=== PATIENT | female | born 1940 | race Caucasian/White ===

== ENCOUNTER → 2023-11-13 07:51 | Outpatient (REF) | payer OTHER, SELFPAY | LOC: HWWDC 07:51 | PROVIDERS: ATTENDING PHYSICIAN Internal Medicine | DX: Z12.31 Encounter for screening mammogram for malignant neoplasm of breast (principal) | CPT/HCPCS: 77063; 77067 ==

== ENCOUNTER 2024-01-28 11:03 | Emergency (ER) | payer OTHER, SELFPAY ==
[2024-01-28 11:07] VITALS: BP 129/92
[2024-01-28 11:45] VITALS: BMI 38.0
--- NOTE | 2024-01-28 11:49 | EDRN ---
Yanet Barlow APPLIANCE SALES ASSOCIATE currently at the pts bedside
[2024-01-28 12:00] VITALS: BP 131/86
--- NOTE | 2024-01-28 12:01 | EDRN ---
labs drawn and sent, this RN provided a gown for the pt and the pt was agreeable to change into a gown for ultrasound, the pt is resting in stretcher in the lowest position, side rails up x1, HOB elevated, there is no call ramsey in [address], the
pt is being taken to ultrasound now
[2024-01-28 12:07] LABS: % Basophils 0.4 % (0-2); % Eosinophils 0.5 % (0-6); % Immature Granulocytes 0.2 % (0-0.5); % Monocytes 8.8 % (1.7-9.3); % Neutrophils 62.1 % (42.2-75.2); Absolute Eosinophils 0.1 10^3/uL (0-0.7); Absolute Lymphocytes 2.6 10^3/uL (1.2-3.4); Absolute Monocytes 0.8 10^3/uL (0.1-0.6); Absolute Neutrophils 5.7 10^3/uL (1.4-6.5); Hematocrit 42.9 % (37.0-47.0); Hemoglobin 14.3 g/dL (12.0-16.0); Mean Corp Hgb Conc. 33.3 g/dL (33.0-37.0); Mean Corpuscular Volume 89.9 fL (81.0-99.0); Mean Platelet Volume 9.5 fL (7.4-10.4); Nucleated Red Blood Cells % 0 %; Platelet Count 252 10^3/uL (130-400); Red Blood Cell Count 4.77 10^6/uL (4.20-5.40); Red Cell Dist. Width 13.2 % (11.5-14.5); White Blood Cell Count 9.2 10^3/uL (4.8-10.8)
--- NOTE | 2024-01-28 12:38 | ED.GENMED ---
History of Present Illness
General
Chief Complaint: DVT/Possible Blood Clot
Source: patient
Exam Limitations: none
Time Seen by Provider: 01/28/24 11:40
Nursing documentation reviewed up to this point in time: agreed with
History of Present Illness
History of Present Illness:
Patient is an 83-year-old female who complains of swelling in left lower extremity for about 4 days. She denies any injury. She denies any redness fever chills. She denies any shortness of breath. No prior history of DVT.
No recent surgeries /recent travel.
Past History
Past History
ED Past Medical History: Cancer (Skin cancer) and HTN
ED Past Surgical History: Other (Skin cancer removal)
Social History
Tobacco: Non-smoker
Alcohol: None
Personal:
Living: with family
Employment: Retired
Family History
Family History: Other (Noncontributory)
Review of Systems
Review of Systems
Allergies reviewed?: Yes
All Other Systems: ROS reviewed and negative except as documented in HPI and ROS
Respiratory: Reports no symptoms; Denies trouble breathing
Cardiac: Reports no symptoms
Musculoskeletal: Reports other (left lower leg swelling )
Skin: Reports no symptoms
Neurological: Reports no symptoms
Psychiatric: Reports no symptoms
Phy Exam
General Physical Exam
General Presentation: no apparent distress
General age: appears stated age
General Skin: warm and dry
General Habitus: normal
General Mental: alert
General Hydration: appears well hydrated
Neurological Exam
Neurological Exam: alert and oriented x3
Musculoskeletal Exam
Musculoskeletal Exam: other (Left lower extremity swelling on exam no erythema strong distal pulses normal distal sensation)
Skin Exam
Skin Exam: normal color and warm/dry
Psychiatric Exam
Psychiatric Exam: normal mood/affect
Course
Orders/Labs/Results
Orders:
Orders
01/28/24 11:48
Venous Doppler Lwr Ext Bilat [US Periph Venous LOWER Ext Mirza] Urgent
Comment:
Reason For Exam: swelling b/l left greater then right
01/28/24 11:51
Complete Blood Count/With Diff Urgent
Comprehensive Metabolic Panel Urgent
01/28/24 13:47
Case Management Consult ONCE
Case Management Consult: Discharge Planning
Comment: eliquis discharge planning
Abnormal Lab Results
01/28/24
11:51
Absolute Monos (auto) 0.8 H 10^3/uL
(0.1-0.6)
BUN 21 H mg/dl
(7-17)
Glucose 108 H mg/dl
(70-99)
01/28/24 11:51
01/28/24 11:51
Vital Signs
Initial and Last Documented VS:
Initial Vital Signs
Temp Pulse Resp BP Pulse Ox
98.2 F 71 18 129/92 96
01/28/24 11:07 01/28/24 11:07 01/28/24 11:07 01/28/24 11:07 01/28/24 11:07
Last Documented Vital Signs
Temp Pulse Resp BP Pulse Ox
98.5 F 74 20 131/86 99
01/28/24 12:00 01/28/24 12:00 01/28/24 12:00 01/28/24 12:00 01/28/24 12:00
Special Weapons And Tactics Officer consulted with Physician
Special Weapons And Tactics Officer consulted with physician?: Yes
Name of Physician Consulted: Caty
MDM/Problems Addressed
MDM/Problems Addressed:
Patient is an 83-year-old female who presented to the ER complaining of 4 days of left lower extremity swelling. No prior history of DVT PE no DVT PE risk factors. She denies any shortness of breath. On exam she has obvious swelling to left lower
extremity strong pulses. She denies injury. Ultrasound does show occlusive thrombus within the left femoral vein popliteal and posterior tibial vein. I did review with vascular surgery there is no mention of common femoral vein thrombus.
patient does not appear very uncomfortable will DC on anticoagulation patient with normal labs normal labs. He did not require any
*Radiology
Radiology exam reviewed: radiology read reviewed
*Pulse Oximetry
Patient hypoxic: no
*Critical Care Note
Total Time (30-74mins, 75-104mins- exclusive of procedures): Not Applicable
ED Attending Note
-
Portions of this chart may have been created with voice recognition software.� Occasional wrong word or��sound alike� substitutions may have occurred due to the inherent limitations of voice recognition software.
Discharge Plan
Departure
Patient Disposition: Home (Routine Discharge)
Date of Disposition: 01/28/24
Time of Disposition: 14:12
Patient with high blood pressure during this ER visit?: Yes
Condition: Fair
Covid-19: Not Applicable
Discharge Problem:
DVT (deep venous thrombosis)
Instructions: Deep Vein Thrombosis (Blood Clots in the Legs) (DC), BLOOD PRESSURE
Prescriptions:
New
Eliquis DVT-PE Treat 30D Start 5 mg (74 tabs) tablets,dose pack
5 mg PO ONCE Qty: 74 0RF
Rx Instructions:
10 mg twice a day for 1 week followed by 5 mg twice a day.
No Action
multivitamin Tablet
1 tab PO DAILY
atenolol 25 mg Tablet
25 mg PO QPM
aspirin 81 mg Tablet,Delayed Release (Dr/Ec)
81 mg PO DAILY
losartan 100 mg Tablet
100 mg PO DAILY
cholecalciferol (vitamin D3) [Vitamin D3] 25 mcg (1,000 unit) Tablet
25 mcg PO DAILY
Referrals:
Allison Villalba MD [Active] -
Basia Taylor MD [Family Provider] -
Activity Restrictions/Additional Instructions:
As discussed you have a DVT in your left leg. You were started on Eliquis which is a blood thinner. You were given the first dose here in the ER. Instructions are to take 10 mg twice a day for 1 week followed by 5 mg twice a day until cleared by
your family doctor.
you likely will be on this medication for the next several months. Is important that you call your family doctor today to make an appointment in the next several days for reevaluation. In addition please call hematology for further evaluation.
Return if any worsening of symptoms of increased pain or swelling shortness of breath.
Interventions
Interventions:
*Risk Screen - Suicide Last Done: 01/28/24 11:07
*General Assessment Last Done: 01/28/24 11:07
*Neglect/Abuse Screening Last Done: 01/28/24 11:07
ED- Fall Risk Assessment Last Done: 01/28/24 11:45
*ED COVID-19 Vaccine History Last Done: 01/28/24 11:07
ED- Cardiac Assessment Last Done: 01/28/24 11:45
ED- Pulmonary Assessment Last Done: 01/28/24 11:45
ED-Peripheral Vascular Assessment Last Done: 01/28/24 11:45
ED-Skin Assessment Last Done: 01/28/24 11:45
Discharge Date and Time
Print Language: SLOVENIAN
[2024-01-28 12:39] LABS: ALT (SGPT) 16 U/L (0-35); AST (SGOT) 24 U/L (14-36); Alkaline Phosphatase 85 U/L (38-126); Blood Urea Nitrogen 21 mg/dl (7-17); Calcium 9.5 mg/dl (8.4-10.2); Carbon Dioxide 29 mmol/L (22-30); Estimated Creatinine Clearance 83 ml/min; Glucose 108 mg/dl (70-99); Potassium 4.5 mmol/L (3.5-5.1); Sodium 140 mmol/L (135-145); Total Bilirubin 0.9 mg/dl (0.2-1.3); Total Protein 7.3 g/dl (6.3-8.2); eGFR > 60.00
[2024-01-28 12:46] LABS: Chloride 104 mmol/L (98-107)
--- NOTE | 2024-01-28 14:04 | CM ---
CM confirmed patient's ELiquis script at $316. CM provided patient with Eliquis coupons to assist with cost. CM updated ED USER SUPPORT ANALYST SUPERVISOR
[2024-01-28 14:30] VITALS: BP 145/61
== END 2024-01-28 14:36 | disposition home or self-care (01) ==
LOC: EMR 11:03
PROVIDERS: Nurse Practitioner; EMERGENCY PHYSICIAN Emergency Medicine; FAMILY PHYSICIAN Internal Medicine
DX: I82.412 Acute embolism and thrombosis of left femoral vein (principal); I82.432 Acute embolism and thrombosis of left popliteal vein; I82.452 Acute embolism and thrombosis of left peroneal vein; I82.442 Acute embolism and thrombosis of left tibial vein; I10 Essential (primary) hypertension; Z85.828 Personal history of other malignant neoplasm of skin
CPT/HCPCS: 99284; 80053; 85025; 93970

== ENCOUNTER → 2024-07-10 08:34 | Outpatient (REF) | payer OTHER, SELFPAY | LOC: HWRCS 08:34 | PROVIDERS: ATTENDING PHYSICIAN Internal Medicine Cardiovascular Disease; FAMILY PHYSICIAN Internal Medicine | DX: I07.1 Rheumatic tricuspid insufficiency (principal) | CPT/HCPCS: 93306 ==

== ENCOUNTER → 2024-12-08 07:45 | Outpatient (REF) | payer OTHER, SELFPAY | LOC: HWRAD 07:45 | PROVIDERS: ATTENDING PHYSICIAN Internal Medicine | DX: Z12.31 Encounter for screening mammogram for malignant neoplasm of breast (principal); Z78.0 Asymptomatic menopausal state | CPT/HCPCS: 77063; 77067; 77080 ==